=== PATIENT | male | born 1960 | race Caucasian/White ===

== ENCOUNTER 2022-04-21 01:19 | Day surgery (SDC) | payer BC, SELFPAY ==
[2022-04-04 14:18] VITALS: BMI 32.0
--- NOTE | 2022-04-20 14:46 | WPDANESEPPF ---
Anes - Initial Pre Proc Eval Procedure: Operation Date: 04/21/22 08:00 Proposed Procedures p Screening Colonoscopy - Rupert Mcmullen MD Date/Time: 04/20/22 14:46 Surgeon: Rupert Mcmullen MD Pre Op Diagnosis: neoplasm screening Patient Data Age: 61 Gender: M Height: 1.68 m Weight: 90 kg Allergies Allergy/AdvReac Type Severity Reaction Status Date / Time No Known Allergies Allergy Mild Verified 04/21/22 06:46 Home Medications Medication Instructions Recorded Confirmed Type amlodipine 10 mg tablet 10 mg PO DAILY 04/04/22 04/04/22 History lorazepam 0.5 mg tablet 0.5 mg PO TID PRN Anxiety 04/04/22 04/04/22 History losartan 100 1 tablet PO DAILY 04/04/22 04/04/22 History mg-hydrochlorothiazide 25 mg tablet Patient hx anesthesia problems: none Family hx anesthesia problems: none Results Review: All pre-operative results and documents have been reviewed as part of the pre-operative evaluation. [facility] Past Medical History Medical History (Updated 04/20/22 @ 14:47 by Juvenal Saldana DO) Anxiety Hypertension MALINDA (obstructive sleep apnea) CPAP Social History Social History Smoking status: Never smoker Alcohol intake: current Drinks per week: 6 Living arrangements: with family Spiritual care concerns: No Anes - Eval Final PreProcedure Day of Procedure 04/20/22 14:46 Patient weight: obese Heart: regular rate and rhythm Lungs: clear to auscultation Airway: Mallampati scale class II Neurological: alert and oriented Last oral intake: >/= 8 hours ASA classification: III Emergent: no Anesthetic plan: proceed Anesthesia type and monitoring: general GIVS and standard monitoring Results Review: All pre-operative results and documents have been reviewed as part of the pre-operative evaluation. Informed Consent: The patient's anesthetic plan and its attendant risks and benefits were discussed with the patient/family/POA. Questions were solicited and answers provided to the satisfaction of the patient/family/POA.
[2022-04-21] MEDS: LACTATED RINGERS 1,000 ML 150 ML IV CONT (07:05)
[2022-04-21 07:35] VITALS: BP 143/75; PULSE 63; RESP 20; TEMP 36.2; O2SAT 99; BMI 31.3
--- NOTE | 2022-04-21 07:37 | P.CONGI_ITS ---
Assessment and Plan Assessment and plan (1) Encounter for screening colonoscopy: Code(s): Z12.11 - Encounter for screening for malignant neoplasm of colon Status: Acute Assessment and Plan: Patient presents for screening colonoscopy. Appears be at average risk for colon polyps. GI Consult Note Consult date/time: 04/21/22 07:37 Reason for consult: Neoplasia screening. HPI: Eduardo Paul is a 61 year old male Presents for screening colonoscopy. Patient's current weight appetite bowel movementsAre normal. He denies abdominal pain. Patient has had no bleeding. Family history is noncontributory. Patient presents today for neoplasia screening. Does report a distant history of a hemorrhoidectomy. Review of Systems Review of Systems: Review of systems noncontributory. [facility] Past Medical History Medical History (Updated 04/21/22 @ 07:38 by Rupert Mcmullen MD) Anxiety Hypertension MALINDA (obstructive sleep apnea) CPAP Social History Social History Smoking status: Never smoker Alcohol intake: current Drinks per week: 6 Living arrangements: with family Spiritual care concerns: No Meds Home Medications and Allergies Home Medications Medication Instructions Recorded Confirmed Type amlodipine 10 mg tablet 10 mg PO DAILY 04/04/22 04/21/22 History lorazepam 0.5 mg tablet 0.5 mg PO TID PRN Anxiety 04/04/22 04/21/22 History losartan 100 1 tablet PO DAILY 04/04/22 04/21/22 History mg-hydrochlorothiazide 25 mg tablet Allergies Allergy/AdvReac Type Severity Reaction Status Date / Time No Known Allergies Allergy Mild Verified 04/21/22 06:46 Exam Narrative: Physical exam reveals patient be alert. Vital signs stable. HEENT exam is unremarkable. Patient is anicteric. Lungs are clear to auscultation and percussion. Heart is without murmur or extra sounds. Abdo viridiana exam bowel sounds present soft nontender with no organomegaly. Digital external rectal exam is normal.
[2022-04-21 08:18] VITALS: BP 90/58; PULSE 67; RESP 18; O2SAT 100
[2022-04-21 08:28] VITALS: BP 128/81; PULSE 64; RESP 18; O2SAT 100
[2022-04-21 08:38] VITALS: BP 135/75; PULSE 56; RESP 18; O2SAT 100
== END 2022-04-21 08:45 | disposition home or self-care (01) ==
PROVIDERS: PCP Internal Medicine; Visit Provider Internal Medicine Gastroenterology
PROC: 0DJD8ZZ Inspection of Lower Intestinal Tract, Via Natural or Artificial Opening Endoscopic (ICD-10-PCS; CPT 45378; principal; 2022-04-21 08:00)
DX: Z12.11 Encounter for screening for malignant neoplasm of colon (principal); K64.8 Other hemorrhoids; K57.30 Diverticulosis of large intestine without perforation or abscess without bleeding; I10 Essential (primary) hypertension; G47.33 Obstructive sleep apnea (adult) (pediatric); F41.9 Anxiety disorder, unspecified; E66.9 Obesity, unspecified; Z68.31 Body mass index [BMI] 31.0-31.9, adult
CPT/HCPCS: 45378; J2704; J7120